=== PATIENT | male | born 1975 | race African-American/Black ===

== ENCOUNTER 2023-12-06 14:19 | Inpatient (IN) | payer OTHER ==
[2023-12-06 14:54] VITALS: BMI 23.5
[2023-12-06] MEDS ORDERED: ACETAMINOPHEN 325 MG TABLET (FP) PO PRN (17:47)
[2023-12-06] MEDS ORDERED: guaiFENesin 600 MG TABLET.ER (FP) PO PRN (17:47)
[2023-12-06] MEDS ORDERED: LOPERAMIDE HCL 2 MG CAPSULE PO PRN (17:47)
[2023-12-06] MEDS ORDERED: POLYETHYLENE GLYCOL (HEALTHYLAX) 3350 17 GM PACKET PO PRN (17:47)
[2023-12-06] MEDS ORDERED: MAGNESIUM HYDROX 2400MG/30ML ORAL SUSPENSION 30 ML CUP PO PRN (17:47)
[2023-12-06] MEDS ORDERED: hydrOXYzine PAMOATE 25 MG CAPSULE (FP) PO PRN (17:47)
[2023-12-06] MEDS ORDERED: BENZOCAINE/MENTHOL (CHLORASEPTIC ) LOZENGE MM PRN (17:47)
[2023-12-06] MEDS ORDERED: BENZONATATE 200 MG CAPSULE PO PRN (17:47)
[2023-12-06] MEDS ORDERED: IBUPROFEN 400 MG TABLET (FP) PO PRN (17:47)
[2023-12-06] MEDS ORDERED: NICOTINE POLACRILEX 2 MG LOZENGE BC PRN (17:47)
[2023-12-06] MEDS: IBUPROFEN 600 MG TABLET (FP) PO PRN (18:51)
[2023-12-06] MEDS: TUBERCULIN PPD 5 TU/0.1ML SYRINGE (IN PATIENT USE ONLY) ID ONE (18:53)
[2023-12-06] MEDS: THIAMINE 100 MG TABLET PO SCH (21:19)
[2023-12-06] MEDS: MELATONIN 5 MG TABLETS PO SCH (21:20)
[2023-12-06 22:47] LABS: PH,URINE 7.5 (5.0-8.0); URINE APPEARANCE CLOUDY; URINE BILIRUBIN NEGATIVE (NEGATIVE); URINE COLOR YELLOW; URINE GLUCOSE (UA) NEGATIVE (NEGATIVE); URINE KETONE NEGATIVE (NEGATIVE); URINE LEUK ESTERASE NEGATIVE (NEGATIVE); URINE NITRITE NEGATIVE (NEGATIVE); URINE PROTEIN NEGATIVE (NEGATIVE)
[2023-12-07] MEDS: PRENATAL VITAMINS W/ FOLIC ACID TABLET (FP) PO SCH (09:11)
[2023-12-07 17:51] LABS: POTASSIUM 4.3 mmol/L (3.5-5.1)
[2023-12-07 17:53] LABS: HEMATOCRIT 42.7 % (35.4-49); HEMOGLOBIN 13.6 GM/dL (11.7-16.9); MCH 25.2 pg (25.7-33.7); MCHC 31.9 g/dl (32.0-35.9); MEAN PLT VOLUME 9.1 fl (7.5-11.1); PLATELET COUNT 188 10^3/uL (134-434); RBC 5.41 M/mm3 (4.00-5.60); RDW 15.2 % (11.9-15.9); WHITE BLOOD COUNT 5.2 K/mm3 (4.0-10.0)
[2023-12-07 18:01] LABS: ALBUMIN 3.3 g/dl (3.4-5.0); BLOOD UREA NITROGEN 5.9 mg/dL (7-18); CALCIUM 9.4 mg/dL (8.5-10.1)
[2023-12-07 18:04] LABS: CREATININE 0.8 mg/dL (0.55-1.3)
[2023-12-07 18:05] LABS: BILIRUBIN,TOTAL 0.4 mg/dL (0.2-1); TOT PROT 6.7 g/dl (6.4-8.2)
[2023-12-07 20:39] LABS: SYPHILIS W/ RPR CONF NON-REACTIVE (NONREACTIVE)
[2023-12-07] MEDS: QUEtiapine FUMARATE 200 MG TABLET PO SCH (21:18)
[2023-12-09] MEDS: MAG HYDROX/AL HYDROX/SIMETH 30 ML UNIT-DOSE CUP PO PRN (09:11)
[2023-12-14] MEDS ORDERED: PRENATAL VITAMINS W/ FOLIC ACID TABLET (FP) PO PRN (13:53)
[2023-12-14] MEDS: NICOTINE POLACRILEX 2 MG GUM BUC PRN (21:24)
[2023-12-18] MEDS ORDERED: guaiFENesin 200 MG/10 ML 10 ML UNIT-DOSE CUPS PO PRN (19:07)
[2023-12-18] MEDS: BENZONATATE 200 MG CAPSULE PO SCH (19:35)
[2023-12-18] MEDS: SULFAMETHOXAZOLE/TRIMETHOPRIM 800MG/160MG D.S. TABLET PO SCH (21:15)
[2023-12-19] MEDS: BENZONATATE 200 MG CAPSULE PO SCH (21:30)
[2023-12-20] MEDS ORDERED: BENZONATATE 200 MG CAPSULE PO PRN (08:27)
[2023-12-24] MEDS: QUEtiapine FUMARATE 300 MG TABLET PO SCH (21:36)
[2023-12-25 06:36] VITALS: RESP 16
[2023-12-25] MEDS ORDERED: QUEtiapine FUMARATE 100 MG TABLET (FP) ONE (22:01)
[2023-12-26] MEDS ORDERED: QUEtiapine FUMARATE 100 MG TABLET (FP) ONE (20:49)
[2023-12-27 06:43] VITALS: BP 120/76; PULSE 94; TEMP 97.3
== END 2023-12-27 10:22 | disposition home or self-care (01) | DRG 772 ==
LOC: YASAS 14:19 → Y3NR 18:17 → Y3E 12-07 10:42
PROVIDERS: ADMIT Psychiatry & Neurology Pain Medicine; ATTEND Psychiatry & Neurology Pain Medicine
PROC: HZ42ZZZ Group Counseling for Substance Abuse Treatment, Cognitive-Behavioral (ICD-10-PCS; principal; 2023-12-06)
DX: F14.20 Cocaine dependence, uncomplicated (principal); F17.210 Nicotine dependence, cigarettes, uncomplicated; F31.9 Bipolar disorder, unspecified; F19.24 Other psychoactive substance dependence with psychoactive substance-induced mood disorder; F43.10 Post-traumatic stress disorder, unspecified; J06.9 Acute upper respiratory infection, unspecified; Z59.02 Unsheltered homelessness
CPT/HCPCS: 0241U-QW; 36415; 71045-TC-FY; 80053; 80305; 80307; 81003; 85027; 86780; 86803; 87811; 93005; 93010